=== PATIENT | male | born 1945 | race African-American/Black ===

== ENCOUNTER → 2016-09-04 | Day surgery (SDC) | payer MEDICARE, MEDICAID ==
[~2016-09-04] VITALS: Ht 180.3 cm; Wt 64.1 kg
[~2016-09-04] MED LIST: *morphine SULFATE 8 MG/ML PERIprocedure ONLY ONE; BUPIVACAINE/EPINEPHRINE 0.5% PF 30 ML VIAL ONE; CHLORHEXIDINE GLUCONATE 2 % 1 PACK (2 CLOTHS) TOPICAL PRN; COLA100C PO; DO NOT ADM ANY ANTICOAGULANT DRUGS PRN; FAMOTIDINE 20 MG/2 ML VIAL ONE; HYDR-3516 PO; HYDR-3580 PO; IBUP800T23 PO; INSULIN HUMAN REGULAR 1,000 UNITS/10 ML VIAL SQ PRN; LACTATED RINGER'S 1000 ML IV PRN; LIDOCAINE HCL 1% 50 ML VIAL ONE; METOPROLOL TARTRATE 25 MG TAB PO PRN; MIDAZOLAM HCL 2 MG/2 ML VIAL ONE; ONDANSETRON HCL 4 MG/2 ML VIAL IV PUSH ONE; PANT40TA3 PO; PHENYLEPH/NS 1000 MCG/10 ML SYR IV ONE; POVIDONE IODINE 5% (ANTISEPSIS KIT) 4 APPLICATIONS EACH NARE PRN; PRED1SUS EACH EYE; PROPOFOL 200 MG/20 ML AMP IV ONE; SODIUM BICARBONATE 8.4% INJ 50 ML ONE; SODIUM CHLORID 0.9% 500 ML IV PRN; TRAV0.00 EACH EYE; ceFAZolin 2 GM PREMIX 50 ML IV SCH; fentaNYL CITRATE 250 MCG/5 ML AMP ONE
[2016-09-04 13:39] VITALS: BP 115/64; PULSE 70; RESP 16; TEMP 98; O2SAT 100
[2016-09-04 13:50] LABS: BASOPHIL # 0.1 TH/MM3 (0-0.2); BASOPHIL % 0.7 % (0.0-2.0); EOSINOPHIL # 0.2 TH/MM3 (0-0.4); EOSINOPHIL % 2.8 % (0.0-4.0); HEMATOCRIT 34.2 % (39.0-51.0); HEMO FLAGS DIFF FINAL; LYMPH % 24.6 % (9.0-44.0); MEAN CELL VOLUME 99.3 FL (80.0-100.0); MEAN CORPUSCULAR HEMOGLOBIN 32.6 PG (27.0-34.0); MEAN CORPUSCULAR HGB CONC 32.9 % (32.0-36.0); MONO % 9.5 % (0.0-8.0); NEUT % 62.4 % (16.0-70.0); PLATELET COUNT 275 TH/MM3 (150-450); RED BLOOD COUNT 3.45 MIL/MM3 (4.50-5.90); RED CELL DISTRIBUTION WIDTH 13.6 % (11.6-17.2)
[2016-09-04 14:14] LABS: BICARBONATE 21.6 MEQ/L (21.0-32.0); POTASSIUM 4.2 MEQ/L (3.5-5.1)
--- NOTE | 2016-09-04 16:50 | HHI.PR ---
Immediate Post Op Note Procedure Date: Sep 04, 2016 Pre Op Diagnosis: (1) History of renal carcinoma Post Op Diagnosis: (1) History of renal carcinoma Surgeon: Kwabena Roque Um Specialist(s): none Procedure: resection of intra-muscular metastasis right pectoralis muscle and left biceps muscle Findings: metastatic tumors Complications: none Specimen(s) removed: metastasis Estimated blood loss: 100ml Anesthesia: General, Local Drains: None IVF Patient to: PACU Patient Condition: Good Kwabena Roque MD Sep 04, 2016 16:50
[2016-09-04 17:55] VITALS: BP 156/84; PULSE 74; RESP 20; TEMP 97; O2SAT 99
--- NOTE | 2016-09-05 15:18 | EKG ---
Date Performed: 09/04/2016 Time Performed: 13:33:30 PTAGE: 71 years EKG: Sinus rhythm WITH SINUS ARRHYTHMIA VOLTAGE CRITERIA FOR LVH ABNORMAL ECG Compared to prior tracing no significant change PREVIOUS TRACING : 03/21/2015 11.13 DOCTOR: Rancho Farr Interpretating Date/Time 09/05/2016 15:16:22
--- NOTE | 2016-09-06 11:43 | MP ---
cc: CLAUDIA TATE DATE OF OPERATION 09/04/2016 PREOPERATIVE DIAGNOSIS Stage IV renal cell carcinoma. POSTOPERATIVE DIAGNOSIS Stage IV renal cell carcinoma. PROCEDURE 1. Excision of a 4 cm right pectoralis intramuscular metastasis. 2. Excision of an 8 cm left biceps muscle intermuscular metastasis. ANESTHESIA General ATTENDING PHYSICIAN Claudia Tate MD GROCERY CADDY Staff COMPLICATIONS None BLOOD LOSS 100 cc FINDINGS A 4 cm and 8 cm intermuscular metastases well vascularized consistent with renal cell carcinoma completely resected with gross negative margins. INDICATIONS FOR THE PROCEDURE The patient is a 71-year-old -[place] male with a history of stage IV renal cell carcinoma who developed multiple intramuscular metastases that were symptomatic. These were not responding to treatment and it did cause the patient significant discomfort. He was referred by Dr. Law for a surgical evaluation. I discussed with the patient the risks, benefits, and alternatives to palliative resection and intramuscular metastases of the right chest wall and left biceps and he wished to undergo the procedure. The risks, benefits, and alternatives were discussed. PROCEDURE After informed consent was obtained, the patient was taken to the operating room at [facility], placed in the supine position and placed under general endotracheal anesthesia. The patient's chest wall and left upper extremity was prepped and draped in a sterile fashion. Time-out was performed. A local anesthetic 0.25% Marcaine with epinephrine was instilled in the planned resection beds. We started with the left biceps metastasis. We made a 10 cm elliptical incision over the palpable metastasis in order to resect the redundant overlying skin. This was done with a 15 blade scalpel without difficulty. We used Bovie electrocautery to dissect right on the tumor capsule anteriorly which was in the subcutaneous tissue. The posterior aspect of the capsule was completely enveloped. The medial head of the biceps divided with the Bovie electrocautery proximal and distal. There were no major vascular structures or nerves in the tumor as this was completely intramuscular. Once we had complete completely resected this again using Bovie electrocautery, completely we passed this off for permanent processing. This was approximately 8 cm in its greatest dimension and contain multiple large amount of skeletal muscle. We got excellent hemostasis using 3-0 silk suture ligatures as well as Bovie electrocautery. We irrigated out the resection cavity thoroughly with saline. We turned our attention towards closure. We closed the subcutaneous tissues with deep dermal 3-0 Vicryl sutures. We closed the skin with 4-0 Monocryl and Dermabond. We then turned our attention towards the right chest wall lesion. A 5 cm incision was made in the skin lines of tension over the right chest wall metastasis. Using Bovie electrocautery, we dissect the subcutaneous tissue down to the mass. The mass was non-encapsulated, but was stuck to all the surrounding muscle. We did resect the pectoralis muscle down to below the pectoralis fascia and short of the chest wall. The metastasis was approximately 4 cm and was entirely in the pectoralis major. Once we had completely resected this, we use 3-0 silk suture ligatures, as well as Bovie electrocautery to get hemostasis of the muscle. We irrigated out the cavity with saline until suctioning was clear. We turned our attention towards closure. We closed the subcutaneous tissue and pectoralis fascia with 3-0 Vicryl sutures. We closed the skin with 4-0 Monocryl and Dermabond. The patient was discontinued from anesthesia and taken to PACU in stable condition. The patient tolerated the procedure well. No apparent complications. All counts were correct and I was present and scrubbed for the entire procedure. MD LUCHO Ries/AJIT /5:48 PM /11:33 AM
== END | disposition home or self-care (01) ==
LOC: HSDC 12:45
PROVIDERS: ATTEND Surgery
DX: C79.89 Secondary malignant neoplasm of other specified sites (principal); C64.9 Malignant neoplasm of unspecified kidney, except renal pelvis; Z01.810 Encounter for preprocedural cardiovascular examination; Z01.818 Encounter for other preprocedural examination
CPT/HCPCS: 21556; 24073; 80048; 85025; 88305; 93005; J0690; J2250; J2270; J2370; J2405; J3010; J7120

== ENCOUNTER 2016-12-30 10:05 | Emergency (ER) | payer MEDICARE, MEDICAID ==
[~2016-12-30] VITALS: Ht 182.9 cm; Wt 64.0 kg
[~2016-12-30 10:05] MED LIST changes: -*morphine SULFATE 8 MG/ML PERIprocedure ONLY ONE; -BUPIVACAINE/EPINEPHRINE 0.5% PF 30 ML VIAL ONE; -CHLORHEXIDINE GLUCONATE 2 % 1 PACK (2 CLOTHS) TOPICAL PRN; -DO NOT ADM ANY ANTICOAGULANT DRUGS PRN; -FAMOTIDINE 20 MG/2 ML VIAL ONE; -HYDR-3516 PO; -INSULIN HUMAN REGULAR 1,000 UNITS/10 ML VIAL SQ PRN; -LACTATED RINGER'S 1000 ML IV PRN; -LIDOCAINE HCL 1% 50 ML VIAL ONE; -METOPROLOL TARTRATE 25 MG TAB PO PRN; -MIDAZOLAM HCL 2 MG/2 ML VIAL ONE; -ONDANSETRON HCL 4 MG/2 ML VIAL IV PUSH ONE; -PHENYLEPH/NS 1000 MCG/10 ML SYR IV ONE; -POVIDONE IODINE 5% (ANTISEPSIS KIT) 4 APPLICATIONS EACH NARE PRN; -PROPOFOL 200 MG/20 ML AMP IV ONE; -SODIUM BICARBONATE 8.4% INJ 50 ML ONE; -SODIUM CHLORID 0.9% 500 ML IV PRN; -ceFAZolin 2 GM PREMIX 50 ML IV SCH; -fentaNYL CITRATE 250 MCG/5 ML AMP ONE
[2016-12-30 12:33] VITALS: BP 180/103; PULSE 60; RESP 18; TEMP 97.7; O2SAT 97
[2016-12-30 12:36] VITALS: BP 180/103; PULSE 60; RESP 18; TEMP 97.7; O2SAT 97
[2016-12-30] MEDS ORDERED: MEGE40TA PO (12:43)
[2016-12-30] MEDS ORDERED: [UNRECOGNIZED DRUG - CODE] PO (12:43)
[2016-12-30] MEDS ORDERED: LISI-515 PO (12:43)
[2016-12-30] MEDS ORDERED: SODIUM CHLOR 0.9% 1000 ML INJ 1,000 ML IV ONE (13:00)
[2016-12-30] MEDS ORDERED: ONDANSETRON HCL 4 MG/2 ML VIAL IV ONE (13:00)
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
[2016-12-30 14:08] LABS: BASOPHIL % 0.5 % (0.0-2.0); EOSINOPHIL % 0.7 % (0.0-4.0); HEMATOCRIT 52.9 % (39.0-51.0); HEMO FLAGS DIFF FINAL; LYMPH % 37.8 % (9.0-44.0); LYMPHOCYTE # 1.4 TH/MM3 (1.0-4.8); MEAN CELL VOLUME 101.8 FL (80.0-100.0); MEAN CORPUSCULAR HGB CONC 33.4 % (32.0-36.0); MONO % 7.2 % (0.0-8.0); NEUT % 53.8 % (16.0-70.0); PLATELET COUNT 210 TH/MM3 (150-450); RED CELL DISTRIBUTION WIDTH 16.5 % (11.6-17.2); WHITE BLOOD COUNT 3.7 TH/MM3 (4.0-11.0)
[2016-12-30 14:29] LABS: ALKALINE PHOSPHATASE 115 U/L (45-117); TOTAL BILIRUBIN ADULT 0.9 MG/DL (0.2-1.0)
[2016-12-30 14:32] LABS: ALT (GPT) 35 U/L (12-78); ANION GAP 11 MEQ/L (5-15); AST (GOT) 46 U/L (15-37); BICARBONATE 22.2 MEQ/L (21.0-32.0); BLOOD UREA NITROGEN 21 MG/DL (7-18); CHLORIDE 103 MEQ/L (98-107); GLOMERULAR FILTRATION RATE 39 ML/MIN (>89); SODIUM (NA) 136 MEQ/L (136-145)
[2016-12-30 14:48] VITALS: BP_SYST 187; BP_DIAS 100; BP_DIAS 120; PULSE 57; RESP 18; O2SAT 98
[2016-12-30] MEDS ORDERED: ZOFR4TAB PO (14:57)
[2016-12-30] MEDS ORDERED: cloNIDine HCL 0.2 MG TAB PO ONE (15:00)
[2016-12-30 16:00] VITALS: BP 208/96; PULSE 53; RESP 18; O2SAT 98
[2016-12-30] MEDS ORDERED: NIFEdipine 10 MG CAP PO ONE (16:00)
[2016-12-30 16:42] VITALS: BP 175/91
== END 2016-12-30 17:00 | disposition home or self-care (01) ==
LOC: NEPD 10:05
DX: R11.2 Nausea with vomiting, unspecified (principal); R19.7 Diarrhea, unspecified; I10 Essential (primary) hypertension; N28.9 Disorder of kidney and ureter, unspecified; F17.210 Nicotine dependence, cigarettes, uncomplicated; B19.20 Unspecified viral hepatitis C without hepatic coma; Z85.528 Personal history of other malignant neoplasm of kidney
CPT/HCPCS: 80053; 83690; 85025; 96361; 96374; 99284; J2405; J7030